=== PATIENT | male | born 1965 | race African-American/Black ===

== ENCOUNTER 2016-12-07 11:28 | Emergency (ER) | payer OTHER ==
[~2016-12-07 11:28] MED LIST: ALBUTEROL17 GM INH; COMBIVENT INH14.7 GM INH; MEDROL4 MG/DOSE- PO; PREDNISONE PO
== END 2016-12-07 12:13 | disposition home or self-care (01) ==
LOC: CED 11:28
DX: I10 Essential (primary) hypertension (principal); J45.21 Mild intermittent asthma with (acute) exacerbation; Z98.890 Other specified postprocedural states; Z79.899 Other long term (current) drug therapy
CPT/HCPCS: 99282

== ENCOUNTER 2016-12-26 00:44 | Emergency (ER) | payer OTHER ==
--- NOTE | ~2016-12-26 | EKG ---
PATIENT: LYNN GARCIA UNIT #: [id number] Ventricular Rate: 96 BPM Atrial Rate: 96 BPM P-R Interval: 128 ms QRS Duration: 80 ms Q-T Interval: 332 ms QTC Calculation(Bezet): 419 ms P [place]: 74 degrees Calculated R [place]: 50 degrees Calculated T [place]: 45 degrees Diagnosis Line: Normal sinus rhythm Diagnosis Line: Cannot rule out Septal infarct , age undetermined Diagnosis Line: Borderline ECG Diagnosis Line: No previous ECGs available Diagnosis Line: Confirmed by JOAN MARSHALL MD ([id number]) on 12/27/2016 Diagnosis Line: 4:05:19 PM INTERPRETING MD: JOANNA KIRKPATRICK
--- NOTE | ~2016-12-26 | CR72 ---
[facility] A Service of [facility] & [facility] RADIOLOGY TEXT RESULTS PATIENT: LYNN GARCIA LOCATION: [facility] : 61 UNIT #: [id number] AGE: [address]: Anil Perales MD SEX: M ORDER DR: [id number] [facility] [address] [place], [place] [address] [id number] E MR#: [id number] Acc #: [id number] NAME: LYNN GARCIA : 1965 SEX: M STUDY DATE/TIME: 12/26/2016 0:59 UNIT: [facility] ROOM: STUDY DESCRIPTION: CR Chest Single View Portable Attending Physician: Anil Perales M.D. Ordering Physician: Anil Perales M.D. Primary Care Physician: No Primary Care Physician MEDICAL IMAGING REPORT This report is preliminary unless electronic signature is present EXAM Portable chest HISTORY Shortness of air, asthma, and chest pain onset today. Smoker. COMPARISON 03/21/2016 FINDINGS Portable view of the chest demonstrates pulmonary hyperinflation and hyperlucency, suggesting underlying emphysema. No acute airspace disease or consolidation. No effusions. The heart and mediastinum unremarkable. No pneumothorax. Dictated by... Jeff Gallagher M.D. THIS IS AN ELECTRONICALLY VERIFIED REPORT Jeff Gallagher M.D. at 12/26/2016 10:05 PM Duy TD: 12/26/2016 11:22 JOB #: [id number] MEDICAL IMAGING REPORT Page 1 of 1 COPY
[2016-12-26 00:58] LABS: BASOPHIL# 0.1 X10e3 (0-0.3); BASOPHIL% 0.8 % (0-2.5); EOSINOPHIL# 0.3 X10e3 (0-0.7); EOSINOPHIL% 4.4 % (0.0-7.0); HEMATOCRIT 46.8 % (38.0-50.0); HEMOGLOBIN 15.4 gm/dL (13.0-16.0); LYMPHOCYTE# 3.9 X10e3 (1.0-3.5); LYMPHOCYTE% 59.3 % (17.0-45.0); MEAN CELL VOLUME 94.9 FL (83-96); MEAN CORPUSCULAR HEMOGLOBIN 31.1 PG (28-34); MEAN CORPUSCULAR HGB CONC 32.8 g/dL (30-36); MEAN PLATELET VOLUME 6.9 FL (6.5-11.5); MONOCYTE# 0.5 X10e3 (0-1.0); MONOCYTE% 7.8 % (3.0-12.0); NEUTROPHIL# 1.8 X10e3 (1.5-7.1); NEUTROPHIL% 27.7 % (40-75); PLATELET COUNT 196 X10e3 (140-420); RED BLOOD COUNT 4.93 X10e (3.90-5.60); RED CELL DISTRIBUTION WIDTH 13.5 % (11.0-15.5); WHITE BLOOD COUNT 6.5 X10e3 (4.0-10.5)
[2016-12-26 00:59] LABS: DIFF IND YES
[2016-12-26 01:08] LABS: POC - TROPONIN <0.05 ng/mL (<=0.05)
[2016-12-26 01:15] LABS: ALBUMIN SERUM 4.6 g/dL (3.5-5.0); BILIRUBIN,TOTAL 0.7 mg/dL (0.2-2.0); BUN/CREATININE RATIO 11.53; CALCIUM SERUM 9.2 mg/dL (8.4-10.2); CREATININE SERUM 1.3 mg/dL (0.6-1.4); GLOM FILT RATE Estimated 72.2 mL/min (>60); POTASSIUM 3.9 mmol/L (3.5-5.1); PROTEIN TOTAL SERUM 7.8 g/dL (6.0-8.3)
[2016-12-26 01:24] LABS: PLATELET ESTIMATE NORMAL (NORMAL)
[2016-12-26 01:25] LABS: ANISOCYTOSIS SL
== END 2016-12-26 03:08 | disposition home or self-care (01) ==
LOC: CED 00:44
PROVIDERS: Emergency Medicine
DX: J45.901 Unspecified asthma with (acute) exacerbation (principal); F17.200 Nicotine dependence, unspecified, uncomplicated
CPT/HCPCS: 71010; 80053; 82553; 84484; 85025; 93005; 94644; 96374; 96375; 99291; J2930; J3475

== ENCOUNTER 2017-01-09 13:20 | Emergency (ER) | payer OTHER | END 2017-01-09 16:28 | disposition home or self-care (01) | LOC: CED 13:20 → CFTX 13:20 | DX: Z76.0 Encounter for issue of repeat prescription (principal); I10 Essential (primary) hypertension; J45.909 Unspecified asthma, uncomplicated | CPT/HCPCS: 94640; 99283 ==

== ENCOUNTER 2017-02-05 15:37 | Emergency (ER) | payer OTHER ==
--- NOTE | ~2017-02-05 | CR72 ---
[facility] A Service of [facility] & [facility] RADIOLOGY TEXT RESULTS PATIENT: LYNN GARCIA LOCATION: [facility] : 61 UNIT #: [id number] AGE: [address]: Boubacar Rosales MD SEX: M ORDER DR: [id number] [facility] [address] [place], [place] [address] [id number] E MR#: [id number] Acc #: [id number] NAME: LYNN GARCIA : 1965 SEX: M STUDY DATE/TIME: 02/05/2017 18:46 UNIT: [facility] ROOM: STUDY DESCRIPTION: CR Chest Single View Portable Attending Physician: Boubacar Rosales M.D. Ordering Physician: Boubacar Rosales M.D. Primary Care Physician: No Primary Care Physician MEDICAL IMAGING REPORT This report is preliminary unless electronic signature is present EXAM Portable chest, 02/05/17. HISTORY Dyspnea. Cough, chest congestion and shortness of breath today. Benign essential hypertension and asthma. FINDINGS A single AP portable view of the chest shows both lungs to be clear. The heart is normal in size. The mediastinal contour is normal. No significant bone abnormalities are seen. IMPRESSION Normal portable chest. Dictated by... Forrest Hernandez M.D. THIS IS AN ELECTRONICALLY VERIFIED REPORT Forrest Hernandez M.D. at 02/08/2017 8:26 AM CHRISTINA/benigno TD: 02/05/2017 23:34 JOB #: [id number] MEDICAL IMAGING REPORT Page 1 of 1 COPY
[2017-02-05 19:05] LABS: BASOPHIL% 0.7 % (0-2.5); EOSINOPHIL# 0.2 X10e3 (0-0.7); EOSINOPHIL% 3.7 % (0.0-7.0); HEMATOCRIT 44.1 % (38.0-50.0); HEMOGLOBIN 14.4 gm/dL (13.0-16.0); LYMPHOCYTE# 2.3 X10e3 (1.0-3.5); MEAN CELL VOLUME 94.5 FL (83-96); MEAN CORPUSCULAR HEMOGLOBIN 30.9 PG (28-34); MEAN CORPUSCULAR HGB CONC 32.7 g/dL (30-36); MEAN PLATELET VOLUME 6.8 FL (6.5-11.5); MONOCYTE# 0.4 X10e3 (0-1.0); MONOCYTE% 8.1 % (3.0-12.0); NEUTROPHIL# 2.2 X10e3 (1.5-7.1); NEUTROPHIL% 42.5 % (40-75); PLATELET COUNT 195 X10e3 (140-420); RED BLOOD COUNT 4.67 X10e (3.90-5.60); RED CELL DISTRIBUTION WIDTH 13.7 % (11.0-15.5); WHITE BLOOD COUNT 5.1 X10e3 (4.0-10.5)
[2017-02-05 19:06] LABS: DIFF IND NO
[2017-02-05 19:30] LABS: BUN/CREATININE RATIO 11.66; CALCIUM SERUM 9.2 mg/dL (8.4-10.2); CREATININE SERUM 1.2 mg/dL (0.6-1.4); GLOM FILT RATE Estimated 79.6 mL/min (>60); POTASSIUM 4.1 mmol/L (3.5-5.1)
== END 2017-02-05 20:08 | disposition home or self-care (01) ==
LOC: CED 15:37
PROVIDERS: Emergency Medicine
DX: J45.901 Unspecified asthma with (acute) exacerbation (principal); F17.200 Nicotine dependence, unspecified, uncomplicated
CPT/HCPCS: 36415; 71010; 80048; 85025; 94644; 96374; 99285; J2930

== ENCOUNTER 2017-04-15 09:13 | Emergency (ER) | payer OTHER ==
[~2017-04-15] VITALS: Ht 175.3 cm; Wt 68.0 kg
--- NOTE | ~2017-04-15 | CR63 ---
[facility] A Service of [facility] & [facility] RADIOLOGY TEXT RESULTS PATIENT: LYNN GARCIA LOCATION: [facility] : 61 UNIT #: [id number] AGE: [address]: Sal Marquez SEX: M ORDER DR: [id number] [facility] [address] [place], [place] [address] [id number] E MR#: [id number] Acc #: [id number] NAME: LYNN GARCIA : 1965 SEX: M STUDY DATE/TIME: 04/15/2017 10:38 UNIT: [facility] ROOM: STUDY DESCRIPTION: CR Chest 2 View Attending Physician: Sal Marquez R.N. Ordering Physician: Sal Marquez R.N. Primary Care Physician: Primary Care Physician No MEDICAL IMAGING REPORT This report is preliminary unless electronic signature is present EXAM Chest 2 views 04/15/2017 1038 hours HISTORY 51-year-old with shortness of air for 3 days. Hypertension. COMPARISON 02/05/2017. FINDINGS Portable upright chest demonstrates normal heart size and minimally tortuous aorta unchanged. Lungs are hyperinflated with underlying emphysematous change. There are calcified granulomatous changes which are stable. There is no acute pulmonary density or pleural effusion. IMPRESSION Stable hyperinflation and calcified granulomatous changes. No acute cardiopulmonary findings. Dictated by... Sujey Hook M.D. THIS IS AN ELECTRONICALLY VERIFIED REPORT Sujey Hook M.D. at 04/15/2017 2:34 PM MARGE/hernan TD: 04/15/2017 12:52 JOB #: [id number] MEDICAL IMAGING REPORT Page 1 of 1 COPY
== END 2017-04-15 11:42 | disposition home or self-care (01) ==
LOC: CED 09:13
DX: J45.901 Unspecified asthma with (acute) exacerbation (principal); I10 Essential (primary) hypertension
CPT/HCPCS: 71020; 94640; 99285